=== PATIENT | male | born 1945 | race Caucasian/White ===

== ENCOUNTER 2019-05-20 20:01 | Inpatient (IN) | payer MEDICARE ==
--- NOTE | 2019-05-20 20:18 | ED ---
Altered Mental Status - HPI Summary HPI Summary: This pt is a 74 y/o male presenting to [facility] via EMS for altered mental status. EMS reports pt recently moved in with his daughter. Per EMS pt has been confusing his daughter for his and has been making sexual advances. Patient denies any recent falls. Patient denies any SI or HI. Patient denies any past suicide attempts. Pt unable to tell what day of the week and year it is. HPI IS LIMITED DUE TO LEVEL 5 CAVEAT - pt with AMS - History Of Current Complaint Chief Complaint: EDAltMentalStatus Stated Complaint: MHE PER EMS Time Seen by Provider: 05/20/19 20:09 Hx Obtained From: Patient, EMS Hx From Patient Unobtainable Due To: Altered Mental Status Onset/Duration: Still Present Timing: Lasting Days Severity Currently: Moderate Character: Confusion Aggravating Factor(s): Unknown Alleviating Factor(s): Unknown Associated Signs And Symptoms: Negative: Fever - Allergies/Home Medications Allergies/Adverse Reactions: Allergies Allergy/AdvReac Type Severity Reaction Status Date / Time lovastatin Allergy Unknown Verified 05/20/19 20:14 Reaction Details Home Medications: Home Medications Memantine TAB* [Namenda TAB*] 10 mg PO BID 05/20/19 [History Confirmed 05/20/19] PMH/Surg Hx/FS Hx/Imm Hx Endocrine/Hematology History: Reports: Hx Diabetes Denies: Hx Thyroid Disease Cardiovascular History: Reports: Hx Hypercholesterolemia, Hx Hypertension Neurological History: Reports: Hx Dementia - Surgical History Surgery Procedure, Year, and Place: Cardiac stents and double bypass Infectious Disease History: No Infectious Disease History: Denies: Traveled Outside the [place] in Last 30 Days - Family History Known Family History: Positive: Hypertension - Social History Alcohol Use: None Substance Use Type: Reports: None Smoking Status (MU): Former Smoker Review of Systems - ROS Summary Review of Systems Summary: ROS IS LIMITED DUE TO LEVEL 5 CAVEAT - AMS Negative: Fever Neurological: Other - POSITIVE: altered mental status Negative: Other - NEGATIVE: SI All Other Systems Reviewed And Are Negative: No Physical Exam - Summary Physical Exam Summary: Constitutional: Well-developed, Well-nourished, Alert. (-) Distressed Skin: Warm, Dry HENT: Normocephalic; Atraumatic Eyes: Conjunctiva normal Neck: Musculoskeletal ROM normal neck. (-) JVD, (-) Stridor, (-) Tracheal deviation Cardio: Rhythm regular, rate normal, Heart sounds normal; Intact distal pulses; The pedal pulses are 2+ and symmetric. Radial pulses are 2+ and symmetric. (-) Murmur Pulmonary/Chest wall: Effort normal. (-) Respiratory distress, (-) Wheezes, (-) Rales Abd: Soft, (-) Tenderness, (-) Distension, (-) Guarding, (-) Rebound Musculoskeletal: (-) Edema Lymph: (-) Cervical adenopathy Neuro: Alert, Oriented x2. Patient is disoriented to date and year. Psych: Mood and affect Normal Triage Information Reviewed: Yes Vital Signs On Initial Exam: Initial Vitals Temp Pulse Resp BP Pulse Ox 97.9 F 71 16 144/68 96 05/20/19 20:06 05/20/19 20:06 05/20/19 20:06 05/20/19 20:06 05/20/19 20:06 Vital Signs Reviewed: Yes Procedures - Sedation Patient Received Moderate/Deep Sedation with Procedure: No Diagnostics - Vital Signs Vital Signs Temp Pulse Resp BP Pulse Ox 05/20/19 20:06 97.9 F 71 16 144/68 96 - Laboratory Result Diagrams: 05/21/19 05:23 05/21/19 05:23 Lab Statement: Any lab studies that have been ordered have been reviewed, and results considered in the medical decision making process. - Radiology Chest XR Radiology Interpretation Completed By: ED Physician - CT Brain CT CT Interpretation Completed By: Radiologist Summary of CT Findings: IMPRESSION: 1. No acute intracranial abnormality. 2. Age -related atrophy and mild chronic small vessel ischemic disease. Dr. Roberson has reviewed this report. - EKG 20:23 Cardiac Rate: NL - at 68 bpm EKG Rhythm: Sinus Rhythm Summary of EKG Findings: EKG at 2022 shows sinus rhythm at a rate of 68 bpm. No STEMI. This EKG was interpreted and reviewed by ED physician. Altered Mental Statu Course/Dx - Course Assessment/Plan: Pt is a 74 y/o male presenting to [facility] via EMS for altered mental status. EMS reports pt recently moved in with. his daughter. Per EMS pt has been confusing his daughter for his and has been making sexual advances. Patient denies any recent falls. Patient denies any SI or HI. Lab results remarkable for sodium of 133, BUN of 33, creatinine of 1.46, glucose of 173. Brain CT shows 1. No acute intracranial abnormality. 2. Age-related atrophy and mild chronic small vessel ischemic disease. Patient was admitted to the hospitalist. - Diagnoses Provider Diagnoses: Dehydration, Acute kidney injury, Dementia Discharge ED - Sign-Out/Discharge Documenting (check all that apply): Patient Departure - Admit to [facility] - Discharge Plan Condition: Stable Disposition: ADMITTED TO [facility] - Billing Disposition and Condition Condition: STABLE Disposition: Admitted to [facility] - Attestation Statements Document Initiated by Scribe: Yes Documenting Scribe: Sada Hernández Provider For Whom Scribe is Documenting (Include Credential): Byron Roberson MD Scribe Attestation: Sada Bailey, scribed for Byron Roberson MD on 05/23/19 at 0824. Scribe Documentation Reviewed: Yes Provider Attestation: The documentation as recorded by the Sada gay accurately reflects the service I personally performed and the decisions made by , Byron Roberson MD Status of Scribe Document: Viewed
--- OUTSIDE RECORDS SUMMARY | 2019-05-20 20:23 | XMS REPORT | Continuity of Care Document ---
:1945 External Reference #:[id number] Author Name Preet Huggins M.D. Address [address] [place] [address] Care Team Providers Name Role Phone Yamile Hernández MD - Neurology Care Team Information Entry Level Paralegal [phone] Problems Active Problems Provider Date Alzheimer's disease Dominick Mack M.D. Onset: 07/09/2015 Essential hypertension Dominick Mack M.D. Onset: 05/28/2015 Type 2 diabetes mellitus Dominick Mack M.D. Onset: 05/28/2015 Hypercholesterolemia Dominick Mack M.D. Onset: 05/28/2015 Coronary arteriosclerosis Dominick Mack M.D. Onset: 05/28/2015 Dominguez's esophagus Dominick Mack M.D. Onset: 06/05/2015 Adenomatous polyp of colon Dominick Mack M.D. Onset: 06/05/2015 Gastroesophageal reflux disease Dominick Mack M.D. Onset: 06/05/2015 Diverticulosis of colon without Dominick Mack M.D. Onset: 06/05/2015 diverticulitis Type II diabetes mellitus uncontrolled Dominick Mack M.D. Onset: 2015 Disturbance in sleep behavior Dominick Mack M.D. Onset: 10/05/2015 Pure hypercholesterolemia, unspecified Dominick Mack M.D. Onset: 2015 Edema Adelina Rosales PA Onset: 02/13/2016 Cobalamin deficiency Preet Huggins M.D. Onset: 05/11/2019 Social History Type Date Description Comments Sex Unknown Tobacco Use Reviewed: 05/11/19 Denies Cigarette Use Smoking Status Reviewed: 05/11/19 Denies Cigarette Use ETOH Use Rarely consumes alcohol Recreational Drug Use Denies Drug Use Tobacco Use Start: Unknown Non Smoker Exercise Type/Frequency Does not exercise Sun Exposure Does not use sunscreen Seat Belt/Car Seat Seat Belt Use - Yes Allergies, Adverse Reactions, Alerts Active Allergies Reaction Severity Comments Date Mevacor "lost my mind" 05/28/2015 Medications Active Medications SIG Qnty Indications Ordering Date Provider Memantine HCL 1/2 tablet by 180tabs G30.9 [place], 05/11/2019 10mg mouth 2x/day for Tracy [place] Tablets 1wk then 1 tab in am and 1/2 tab in pm for 1 week then 1 tab 2x/day; for memory Vitamin B-12 take 1 sublingual D51.9 Bhavna, 05/11/2019 1000mcg tablet daily Tracy [place] Tablets Losartan Potassium take 1 tablet I10 Unknown 05/10/2019 daily in the 100mg Tablets morning for high blood pressure Januvia Take One Tablet By Unknown 04/23/2019 100mg Tablets Mouth Once Daily Ezetimibe Take One Tablet By Unknown 03/04/2019 10mg Tablets Mouth Every Day Nitroglycerin 1 q 5min prn chest 100tabs I25.10 Dominick Apple 06/05/2016 0.4mg pain max of 3 then Tracy Mack Tablets Sub call 911 if unrelieved Potassium Chloride 2 tablet by mouth 180tabs R60.0 Dominick Apple 02/13/2016 Yokasta ER daily, take with Tracy Mack 20Meq Tablets furosemide ER Furosemide Take One Tablet By 30tabs R60.0 David Núñez, 02/13/2016 40mg Tablets Mouth Once Daily D.O. Metoprolol Tartrate take 1 tablet by 180tabs I25.10 Dominick Apple 10/05/2015 mouth twice a day Tracy Mack 50mg Tablets I10 Amlodipine Besylate 1 tablet by mouth 90tabs I10 Dominick Mack, 05/17 10mg daily M.DKeny Tablets Crestor 1 by mouth in the 90tabs E78.00 Dominick Mack, 04/24/2015 40mg Tablets evening M.DKeny I25.10 Glipizide Take One Tablet By 180tabs E11.65 Dominick Mack, 04/02/2015 5mg Tablets Mouth Twice A Day M.D. Medications Administered in Office Medication SIG Qnty Indications Ordering Provider Date B12 Injection Nurse's Schedule 05/29/2016 Injection SC/Im Injections Nurse's Schedule 05/29/2016 Injection B12 Injection Dominick Mack M.D. 04/28/2016 Injection SC/Im Injections Dominick Mack M.D. 04/28/2016 Injection B12 Injection Dominick Mack M.D. 03/17/2016 Injection SC/Im Injections Dominick Mack M.D. 03/17/2016 Injection B12 Injection Dominick Mack M.D. 02/26/2016 Injection SC/Im Injections Dominick Mack M.D. 02/26/2016 Injection B12 Injection Nurse's Schedule 01/28/2016 Injection SC/Im Injections Nurse's Schedule 01/28/2016 Injection B12 Injection Nurse's Schedule 11/06/2015 Injection SC/Im Injections Nurse's Schedule 11/06/2015 Injection B12 Injection Dominick Mack M.D. 10/05/2015 Injection B12 Injection Nurse's Schedule 10/05/2015 Injection SC/Im Injections Dominick Mack M.D. 10/05/2015 Injection B12 Injection Nurse's Schedule 09/07/2015 Injection SC/Im Injections Nurse's Schedule 09/07/2015 Injection B12 Injection Nurse's Schedule 08/09/2015 Injection SC/Im Injections Nurse's Schedule 08/09/2015 Injection B12 Injection Dominick Mack M.D. 07/09/2015 Injection SC/Im Injections Dominick Mack M.D. 07/09/2015 Injection B12 Injection Nurse's Schedule 05/31/2015 Injection SC/Im Injections Nurse's Schedule 05/31/2015 Injection Immunizations CPT Code Status Date Vaccine Lot # [id number] Given 02/26/2016 Adacel or Boostrix, TDaP [id number] 03251 Given 01/24/2016 Influenza Vaccine Split Virus Preservative Free Im [id number] Use (hi-dose) 69237 Given 02/14/2015 Prevnar 13 18258 Given 02/06/2015 Flu, Split Virus 3Yrs 95501 Given 01/02/2014 Flu, Split Virus 3Yrs 85442 Given 05/28/2011 Pneumococcal Immunization 31327 Given 02/18/2005 Pneumococcal Immunization 14586 Given 04/13/2004 Td Immunization Vital Signs Date Vital Result Comment 05/11/2019 3:33pm BP Systolic 132 mmHg BP Diastolic 60 mmHg Height 67 inches 5'7" Weight 192.00 lb BMI (Body Mass Index) 30.1 kg/m2 06/09/2016 1:34pm BP Systolic 122 mmHg BP Diastolic 55 mmHg Heart Rate 80 /min Respiratory Rate 16 /min Weight 210.00 lb with shoes Results Test Acquired Facility Test Result H/L Range Note Date Laboratory 05/11/2019 In House Hemoglobin A1c 7.1 test finding Laboratory 05/06/2019 [facility] Troponin-I 0.04 Critical <0.03 1 test finding [phone] (TnI) ng/mL high Laboratory 05/06/2019 [facility] Troponin-I 0.04 Critical <0.03 2 test finding [phone] (TnI) ng/mL high CBC Auto Diff 05/06/2019 [facility] White Blood 7.1 Normal 3.5-10.8 [phone] Count 10^3/uL Red Blood Count 4.23 10^6/uL Normal 4.18-5.48 Hemoglobin 13.6 g/dL Low 14.0-18.0 Hematocrit 40 % Low 42-52 Mean Corpuscular Volume 94 fL Normal 80-94 Mean Corpuscular Hemoglobin 32 pg High 27-31 Mean Corpuscular HGB Conc 34 g/dL Normal 31-36 Red Cell Distribution Width 13 % Normal 10-15 Platelet Count 148 10^3/uL Low 150-450 Mean Platelet Volume 7.8 fL Normal 7.4-10.4 Abs Neutrophils 5.1 10^3/uL Normal 1.5-7.7 Abs Lymphocytes 1.0 10^3/uL Normal 1.0-4.8 Abs Monocytes 0.8 10^3/uL Normal 0-0.8 Abs Eosinophils 0.2 10^3/uL Normal 0-0.6 Abs Basophils 0.0 10^3/uL Normal 0-0.2 Abs Nucleated RBC 0.0 10^3/uL Granulocyte % 72.0 % Lymphocyte % 13.9 % Monocyte % 10.6 % Eosinophil % 2.9 % Basophil % 0.6 % Nucleated Red Blood Cells % 0.0 Comp Metabolic Panel 05/06/2019 [facility] Sodium 134 mmol/L Low 135- 145 [phone] Potassium 4.0 mmol/L Normal 3.5-5.0 Chloride 105 mmol/L Normal 101-111 Co2 Carbon Dioxide 23 mmol/L Normal 22-32 Anion Gap 6 mmol/L Normal 2-11 Glucose 199 mg/dL High 70-100 Blood Urea Nitrogen 21 mg/dL Normal 6-24 Creatinine 1.25 mg/dL High 0.67-1.17 BUN/Creatinine Ratio 16.8 Normal 8-20 Calcium 8.9 mg/dL Normal 8.6-10.3 Total Protein 6.3 g/dL Low 6.4-8.9 Albumin 3.8 g/dL Normal 3.2-5.2 Globulin 2.5 g/dL Normal 2-4 Albumin/Globulin Ratio 1.5 Normal 1-3 Total Bilirubin 0.50 mg/dL Normal 0.2-1.0 Alkaline Phosphatase 56 U/L Normal 34-104 Alt 14 U/L Normal 7-52 Ast 18 U/L Normal 13-39 Egfr Non- 56.6 >60 Egfr 68.5 >60 3 Laboratory test 05/06/2019 [facility] Magnesium 2.1 mg/dL Normal 1.9- 2.7 finding [phone] Troponin-I (TnI) 0.03 ng/mL Critical high <0.03 4 Urinalysis Profile 05/06/2019 [facility] Urine Color Straw [phone] Urine Appearance Clear Urine Specific [place] 1.010 Normal 1.010-1.030 Urine pH 6.0 Normal 5-9 Urine Urobilinogen Negative Negative Urine Ketones Negative Negative Urine Protein Negative Negative Urine Leukocytes Negative Negative Urine Blood 1+ Abnormal Negative Urine Nitrite Negative Negative Urine Bilirubin Negative Negative Urine Glucose 1+(50 mg/dL) Abnormal Negative Urine White Blood Cell Absent Absent Urine Red Blood Cell Absent Absent Urine Bacteria Absent Absent 1 Result TnIDx:0.04 Called to JARVIS at: 16:41:07 by:[id number] Read back by: JARVIS Troponin-I testing on Plasma Separator Tubes (PST) has a known false positive rate of 0.20-0.40%. All positive troponins reflex immediately to secondary confirmatory testing. Using the [employer] DxI 800 Access Immunoassay systems, the 99th percentile upper reference limit was demonstrated to be < 0.03 ng/mL. 2 Result TnIDx:0.04 Called to [id number] at: 14:27:21 by:[id number] Read back by: [id number] Troponin-I testing on Plasma Separator Tubes (PST) has a known false positive rate of 0.20-0.40%. All positive troponins reflex immediately to secondary confirmatory testing. Using the [employer] DxI 800 Access Immunoassay systems, the 99th percentile upper reference limit was demonstrated to be < 0.03 ng/mL. 3 Because ethnic data is not always readily available, this report includes an eGFR for both -Americans and non- Americans. The National Kidney Disease Education Program (NKDEP) does not endorse the use of the MDRD equation for patients that are not between the ages of 18 and 70, are , have extremes of body size, muscle mass, or nutritional status, or are non- or non-. According to the National Kidney Foundation, irrespective of diagnosis, the stage of the disease is based on the level of kidney function: Stage Description GFR(mL/min/1.73 m(2)) 1 Kidney damage with normal or decreased GFR 90 2 Kidney damage with mild decrease in GFR 60-89 3 Moderate decrease in GFR 30-59 4 Severe decrease in GFR 15-29 5 Kidney failure <15 (or dialysis) 4 Result TnIDx:0.03 Called to [id number] at: 13:11:19 by:[id number] Read back by: [id number] Troponin-I testing on Plasma Separator Tubes (PST) has a known false positive rate of 0.20-0.40%. All positive troponins reflex immediately to secondary confirmatory testing. Using the [employer] DxI 800 Access Immunoassay systems, the 99th percentile upper reference limit was demonstrated to be < 0.03 ng/mL. Procedures Date Code Description Status 05/11/2016 281122560 Diabetic Foot Exam Completed 08/11/2014 98316421 Colonoscopy Completed Medical Devices Description No Information Available Encounters Type Date Location Provider Dx Diagnosis Office Visit 05/11/2019 Main Office Preet Huggins Z68.30 Body mass index 2:45p M.D. (BMI) 30.0-30.9, adult E11.65 Type 2 diabetes mellitus with hyperglycemia G30.9 Alzheimer's disease, unspecified I10 Essential (primary) hypertension I25.10 Athscl heart disease [place] coronary artery w/o ang pctrs D51.9 Vitamin B12 deficiency anemia, unspecified Assessments Date Code Description Provider 05/11/2019 Z68.30 Body mass index (BMI) 30.0-30.9, adult Preet Huggins M.D. 05/11/2019 E11.65 Type 2 diabetes mellitus with hyperglycemia Preet Huggins M.D. 05/11/2019 G30.9 Alzheimer's disease, unspecified Preet Huggins M.D. 05/11/2019 I10 Essential (primary) hypertension Preet Huggins M.D. 05/11/2019 I25.10 Atherosclerotic heart disease [place] Preet Huggins M.D. coronary artery without angina pectoris 05/11/2019 D51.9 Vitamin B12 deficiency anemia, unspecified Preet Huggins M.D. Plan of Treatment Future Appointment(s):07/11/2019 8:55 am - Preet Huggins M.D. at Main Det[facility]3505/11/2019 - Preet Huggins M.D.Z68.30 Body mass index (BMI) 30.0-30.9, jvyfbN82.65 Type 2 diabetes mellitus with hyperglycemiaComments:A1c 7.1%. Given age and comorbidities I suspect this is adequate for him. Await old records.G30.9 Alzheimer's disease, unspecifiedNew Medication:Memantine HCL 10 mg - 1/2 tablet by mouth 2x/day for 1wk then 1 tab in am and 1/2 tab in pm for 1 week then 1 tab 2x/day; for memoryComments:Counseled re Dx, as well as the fact that this Dx was made initially back in [address] Hernández, and that his course since then further makes the Dx of Alzheimer's the likely cause here. He is now havingdifficulty with owning. We discussed importance of keeping him stimulated during the day, keeping his environment well lit during the day, and of keeping a predictable daily schedule. We discussed that non pharmacologic means were preferred as there is much baggage for many of the meds used to address such Sxs. We talked about possibility of trying quetiapine but warned them re risks/black box warning and in the end the family was not interested in such medication. We talked about keeping him safe, not allowing him access to car, turning off gas when other family not around. I advised against locking him in hte house when no one was around. Unfortunately Nay and Vincent work nights and he is therefore home alone and they have louisa unable to get an aid yet but have been trying, have spoke to [facility], and I also suggested they try reaching out to [facility] to see if they could help. They have plans to meet w/ someone at office of the aging to see what he may be eligible for in terms of social programs that would allow him to get a higher level of care.WRT Tx of the underlying disease, we discussed therapeutic options incl cholinesterase inhibitors such as Aricept (although Nay notes he has chronic diarrhea and has some accidents) and mthe option of memantine. We reviewed S/Es of both and expectations, how they won't really know if it is working or not. They decided to try memantine.Follow up:RTO 2-3 [address] records from Dr Zuñiga Resume your potassium [id number] Essential (primary) hypertensionNew Orders:Laura w/ micro, inhouse, Ordered: 05/11/19I25.10 Atherosclerotic heart disease of [place] coronary artery without angina vnemukvpT59.9 Vitamin B12 deficiency anemia, unspecifiedNew Medication:Vitamin B -12 1000 mcg - take 1 sublingual tablet dailyComments:start po B12 and we will check a level down the road, after he has been on the po supp for at least a couple of months. Functional Status Description No Information Available Mental Status Description No Information Available Referrals Description No Information Available
[2019-05-20 20:38] LABS: ABS Basophils 0.1 10^3/ul (0-0.2); ABS Eosinophils 0.3 10^3/ul (0-0.6); ABS Lymphocytes 1.4 10^3/ul (1.0-4.8); ABS Monocytes 1.3 10^3/ul (0-0.8); ABS Neutrophils 6.5 10^3/ul (1.5-7.7); Eosinophil % 2.7 %; Hematocrit 40 % (42-52); Hemoglobin 14.2 g/dL (14.0-18.0); Lymphocyte % 14.2 %; Mean Corpuscular HGB Conc 36 g/dL (31-36); Mean Corpuscular Hemoglobin 33 pg (27-31); Mean Corpuscular Volume 92 fL (80-94); Mean Platelet Volume 8.2 fL (7.4-10.4); Platelet Count 158 10^3/uL (150-450); Red Blood Count 4.35 10^6 /uL (4.18-5.48); Red Cell Distribution Width 13 % (10-15); White Blood Count 9.5 10^3/uL (3.5-10.8)
[2019-05-20 20:55] LABS: ALT 23 U/L (7-52); AST 22 U/L (13-39); Albumin 4.2 g/dL (3.2-5.2); Albumin/Globulin Ratio 1.6 (1-3); Alkaline Phosphatase 65 U/L (34-104); Anion Gap 7 mmol/L (2-11); BUN/Creatinine Ratio 22.6 (8-20); Blood Urea Nitrogen 33 mg/dL (6-24); CO2 Carbon Dioxide 24 mmol/L (22-32); Calcium 9.3 mg/dL (8.6-10.3); Chloride 102 mmol/L (101-111); EGFR African American 57.3 (>60); EGFR Non-African American 47.3 (>60); Globulin 2.7 g/dL (2-4); Glucose 173 mg/dL (70-100); Potassium 4.7 mmol/L (3.5-5.0); Sodium 133 mmol/L (135-145); Total Protein 6.9 g/dL (6.4-8.9)
[2019-05-20 20:56] LABS: Troponin I 0.01 ng/mL (<0.03)
[2019-05-20] MEDS ORDERED: NS 0.9% 1000 ML** 1,000 ML IV ONE (21:13)
[2019-05-20 21:15] LABS: Alcohol < 10 mg/dL (<10)
[2019-05-20] MEDS ORDERED: NS 0.9% 1000 ML** 1,000 ML IV SCH (23:30)
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
[2019-05-21 05:47] LABS: ABS Basophils 0.1 10^3/ul (0-0.2); ABS Eosinophils 0.3 10^3/ul (0-0.6); ABS Lymphocytes 1.7 10^3/ul (1.0-4.8); ABS Neutrophils 6.6 10^3/ul (1.5-7.7); Eosinophil % 2.8 %; Hematocrit 39 % (42-52); Lymphocyte % 17.5 %; Mean Corpuscular HGB Conc 36 g/dL (31-36); Mean Corpuscular Hemoglobin 33 pg (27-31); Mean Corpuscular Volume 92 fL (80-94); Mean Platelet Volume 8.1 fL (7.4-10.4); Nucleated Red Blood Cells % 0.1; Platelet Count 159 10^3/uL (150-450); Red Cell Distribution Width 13 % (10-15); White Blood Count 9.6 10^3/uL (3.5-10.8)
[2019-05-21] MEDS: Heparin VIAL(*) 5000 UNITS/ML VIAL (FIVE THOUSAND) SUBCUT SCH ×3 (05:55→21:23)
[2019-05-21 06:06] LABS: Calcium 9.1 mg/dL (8.6-10.3); EGFR African American 71.8 (>60); EGFR Non-African American 59.3 (>60); Potassium 4.1 mmol/L (3.5-5.0)
[2019-05-21 07:55] LABS: Urine Appearance Clear; Urine Bilirubin Negative (Negative); Urine Blood 1+ (Negative); Urine Color Straw; Urine Glucose 2+(150 mg/dL) (Negative); Urine Ketones Negative (Negative); Urine Nitrite Negative (Negative); Urine Protein Negative (Negative); Urine Specific Gravity 1.009 (1.010-1.030); Urine Urobilinogen Negative (Negative)
[2019-05-21 08:17] LABS: Urine Bacteria Absent (Absent); Urine Red Blood Cell Trace(0-2/hpf) (Absent); Urine White Blood Cell Trace(0-5/hpf) (Absent)
[2019-05-21] MEDS: Metoprolol Tartrate TAB* 50 mg PO SCH ×2 (08:48→21:24)
[2019-05-21] MEDS: Memantine TAB* 10 MG PO SCH ×2 (08:48→21:24)
[2019-05-21] MEDS: Ezetimibe TAB* 10 MG PO SCH (08:48)
[2019-05-21] MEDS: Atorvastatin* 80 MG TAB PO SCH (08:48)
[2019-05-21] MEDS: Losartan TAB* 25 MG PO SCH (08:48)
[2019-05-21] MEDS: Potassium Chlor TAB* 20 MEQ TAB.ER PO SCH ×2 (08:49→21:24)
[2019-05-21] MEDS: Insulin LISPRO* 1 UNITS UNIT SUBCUT SCH ×4 (08:51→21:23)
[2019-05-21] MEDS ORDERED: amLODIPine TAB* 5 MG PO SCH (09:00)
[2019-05-21 10:30] LABS: TSH (Thyroid Stimulating Horm) 2.44 mcIU/mL (0.34-5.60)
[2019-05-21 10:32] LABS: Free T4 0.96 ng/dL (0.61-1.12)
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
[2019-05-21] MEDS ORDERED: amLODIPine TAB* 5 MG PO ONE (12:14)
[2019-05-21 13:19] LABS: Vitamin D Total 25(OH) 36.3 ng/mL (20-50)
[2019-05-21] MEDS: glipiZIDE TAB* 5 MG PO SCH (17:39)
[2019-05-21] MEDS ORDERED: QUEtiapine TAB* 25 MG PO SCH (21:00)
[2019-05-22] MEDS ORDERED: QUEtiapine TAB* 25 MG PO ONE (00:48)
[2019-05-22] MEDS: Heparin VIAL(*) 5000 UNITS/ML VIAL (FIVE THOUSAND) SUBCUT SCH ×3 (05:37→22:28)
[2019-05-22] MEDS: Insulin LISPRO* 1 UNITS UNIT SUBCUT SCH ×4 (07:37→19:38)
[2019-05-22] MEDS: Potassium Chlor TAB* 20 MEQ TAB.ER PO SCH ×2 (07:47→19:37)
[2019-05-22] MEDS: glipiZIDE TAB* 5 MG PO SCH ×2 (07:47→16:56)
[2019-05-22] MEDS: Memantine TAB* 10 MG PO SCH ×2 (07:47→19:37)
[2019-05-22] MEDS: Losartan TAB* 25 MG PO SCH (07:47)
[2019-05-22] MEDS: Metoprolol Tartrate TAB* 50 mg PO SCH ×2 (07:47→19:37)
[2019-05-22] MEDS: amLODIPine TAB* 5 MG PO SCH (07:47)
[2019-05-22] MEDS: Atorvastatin* 80 MG TAB PO SCH (07:48)
[2019-05-22] MEDS: Ezetimibe TAB* 10 MG PO SCH (07:48)
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
[2019-05-22] MEDS ORDERED: Calcium Carbonate CHEW TAB* 500 MG (TUMS) PO PRN (14:46)
[2019-05-22] MEDS: QUEtiapine TAB* 100 MG PO SCH (19:24)
[2019-05-22] MEDS: Melatonin 3 MG TAB PO SCH (19:37)
[2019-05-23] MEDS: Heparin VIAL(*) 5000 UNITS/ML VIAL (FIVE THOUSAND) SUBCUT SCH ×3 (06:18→20:12)
[2019-05-23] MEDS: Insulin LISPRO* 1 UNITS UNIT SUBCUT SCH ×4 (08:44→20:11)
[2019-05-23] MEDS: Metoprolol Tartrate TAB* 50 mg PO SCH ×2 (08:53→20:11)
[2019-05-23] MEDS: Losartan TAB* 25 MG PO SCH (08:53)
[2019-05-23] MEDS: amLODIPine TAB* 5 MG PO SCH (08:53)
[2019-05-23] MEDS: Memantine TAB* 10 MG PO SCH ×2 (08:55→20:11)
[2019-05-23] MEDS: Atorvastatin* 80 MG TAB PO SCH (08:56)
[2019-05-23] MEDS: glipiZIDE TAB* 5 MG PO SCH ×2 (08:56→17:31)
[2019-05-23] MEDS: Ezetimibe TAB* 10 MG PO SCH (08:56)
[2019-05-23] MEDS: Potassium Chlor TAB* 20 MEQ TAB.ER PO SCH ×2 (08:56→20:11)
[2019-05-23 09:55] LABS: BUN/Creatinine Ratio 20.6 (8-20); EGFR African American 86.6 (>60); EGFR Non-African American 71.6 (>60); Potassium 4.3 mmol/L (3.5-5.0)
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
[2019-05-23] MEDS: Melatonin 3 MG TAB PO SCH (20:11)
[2019-05-23] MEDS: QUEtiapine TAB* 100 MG PO SCH (20:11)
[2019-05-24] MEDS: Heparin VIAL(*) 5000 UNITS/ML VIAL (FIVE THOUSAND) SUBCUT SCH ×3 (05:32→21:18)
[2019-05-24] MEDS: Losartan TAB* 25 MG PO SCH (07:43)
[2019-05-24] MEDS: amLODIPine TAB* 5 MG PO SCH (07:43)
[2019-05-24] MEDS: glipiZIDE TAB* 5 MG PO SCH ×2 (07:43→17:01)
[2019-05-24] MEDS: Metoprolol Tartrate TAB* 50 mg PO SCH ×2 (07:43→21:19)
[2019-05-24] MEDS: Ezetimibe TAB* 10 MG PO SCH (07:43)
[2019-05-24] MEDS: Atorvastatin* 80 MG TAB PO SCH (07:43)
[2019-05-24] MEDS: Memantine TAB* 10 MG PO SCH ×2 (07:43→21:18)
[2019-05-24] MEDS: Potassium Chlor TAB* 20 MEQ TAB.ER PO SCH ×2 (07:43→21:19)
[2019-05-24] MEDS: Insulin LISPRO* 1 UNITS UNIT SUBCUT SCH ×4 (08:48→21:16)
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
[2019-05-24] MEDS: QUEtiapine TAB* 100 MG PO SCH (21:19)
[2019-05-24] MEDS: Melatonin 3 MG TAB PO SCH (21:19)
--- NOTE | 2019-05-24 23:10 | DS ---
CC: Dr. Huggins * DISCHARGE SUMMARY: DATE OF ADMISSION: 05/20/19 DATE OF ANTICIPATED DISCHARGE: 05/25/19 (This discharge was dictated in advance ). ATTENDING PHYSICIAN WHILE IN THE HOSPITAL: Dr. Mary Lema * (dictated by ELVIS Humphries) PRIMARY CARE PROVIDER: Dr. Huggins. PRIMARY DIAGNOSIS: Dementia with wandering behavior. SECONDARY DIAGNOSES: 1. Dementia. 2. Diabetes mellitus type 2. 3. Hypertension. 4. Hyperlipidemia. 5. Questionable history of stroke. 6. Coronary artery disease status post coronary artery bypass graft. PERTINENT STUDIES WHILE IN THE HOSPITAL: Chest x-ray: Postsurgical changes, no evidence for acute finding. Brain CT: No acute intracranial abnormality. Age- related atrophy and mild chronic small vessel ischemic disease. HISTORY OF PRESENT ILLNESS/HOSPITAL COURSE: David Vera is a 74-year-old white male with the past medical history significant for coronary artery disease status post CABG, diabetes mellitus type 2, hypertension, hyperlipidemia , and dementia; who presents to the emergency department upon his daughter's direction due to difficulty caring for him at home. The patient has had increasing frequency of wandering behavior at home and therefore he moved into his daughter's house. The wandering behavior did frequently occur as well and she was having difficulty caring for him due to her work schedule. Additionally , there were concerns that he was becoming more confused, aggressive, and agitated which brought him to the hospital. He had syphilis IgG antibody which was negative. Urinalysis revealed no signs of infection. His TSH was normal, B12 was normal, vitamin D was normal and there was no concerns for other source of infection. He had a while he was in the hospital and his normal home medications were continued other than his home Lasix because there were concerns for some possible dehydration and there was some mild acute kidney injury which has since resolved. Otherwise, he was not appearing agitated and there was no aggressive behavior during his hospitalization, though he did frequently have sleep disturbances and Seroquel was started which did help him sleep through the night. PHYSICAL EXAMINATION: Please see progress note from 05/24/19. DISCHARGE PLAN: DIET: Heart-healthy diet. ACTIVITY: The patient may return to normal activities as tolerated. The patient will be receiving long-term care at [facility] in [place], [place]. The patient's daughter has consented for this. The patient will be establishing care with a new primary care provider there. He would benefit from a repeat BMP in 1 week as I am restarting his Lasix. He should return to the emergency department for any chest pain, difficulty breathing, fever, chills, or other concerning symptoms. DISCHARGE MEDICATIONS: 1. Memantine 10 mg p.o. b.i.d. 2. Metoprolol tartrate 50 mg p.o. b.i.d. 3. Lasix 40 mg p.o. daily. 4. Ezetimibe 10 mg p.o. daily. 5. Amlodipine 5 mg p.o. daily. 6. Losartan 100 mg p.o. daily. 7. Sitagliptin 100 mg p.o. daily. 8. Rosuvastatin 40 mg p.o. daily. 9. Potassium chloride 20 mEq p.o. b.i.d. 10. Glipizide 5 mg p.o. daily. 11. Seroquel 100 mg p.o. at bedtime. 12. Melatonin 6 mg p.o. at bedtime. 13. Calcium carbonate 500 mg p.o. q.4 hours p.r.n. indigestion. CONDITION ON DISCHARGE: Stable. DISPOSITION: [facility]. TIME SPENT: Approximately 35 minutes was spent on his discharge, approximately half this time was spent at the bedside evaluating the patient and discussing the plan of care. ELVIS HUMPHRIES [id number]/[facility] #: [id number] [facility]ENTERJossie
[2019-05-25] MEDS: Heparin VIAL(*) 5000 UNITS/ML VIAL (FIVE THOUSAND) SUBCUT SCH (06:04)
[2019-05-25 07:51] VITALS: BP 125/52
[2019-05-25] MEDS: Insulin LISPRO* 1 UNITS UNIT SUBCUT SCH (08:47)
[2019-05-25] MEDS: Ezetimibe TAB* 10 MG PO SCH (08:48)
[2019-05-25] MEDS: glipiZIDE TAB* 5 MG PO SCH (08:48)
[2019-05-25] MEDS: Metoprolol Tartrate TAB* 50 mg PO SCH (08:48)
[2019-05-25] MEDS: Potassium Chlor TAB* 20 MEQ TAB.ER PO SCH (08:48)
[2019-05-25] MEDS: Atorvastatin* 80 MG TAB PO SCH (08:48)
[2019-05-25] MEDS: Losartan TAB* 25 MG PO SCH (08:49)
[2019-05-25] MEDS: Memantine TAB* 10 MG PO SCH (08:49)
[2019-05-25] MEDS: amLODIPine TAB* 5 MG PO SCH (08:49)
== END 2019-05-25 09:30 | DRG 57 ==
LOC: ED 20:01 → MED 23:20
PROVIDERS: ADMIT Internal Medicine; ATTEND Internal Medicine
DX: G30.9 Alzheimer's disease, unspecified (principal); F05 Delirium due to known physiological condition; N17.9 Acute kidney failure, unspecified; F02.80 Dementia in other diseases classified elsewhere, unspecified severity, without behavioral disturbance, psychotic disturbance, mood disturbance, and anxiety; I25.10 Atherosclerotic heart disease of native coronary artery without angina pectoris; K21.9 Gastro-esophageal reflux disease without esophagitis; E78.00 Pure hypercholesterolemia, unspecified; I10 Essential (primary) hypertension; E86.0 Dehydration; E78.5 Hyperlipidemia, unspecified; E11.51 Type 2 diabetes mellitus with diabetic peripheral angiopathy without gangrene; Z88.8 Allergy status to other drugs, medicaments and biological substances; Z95.5 Presence of coronary angioplasty implant and graft; Z95.1 Presence of aortocoronary bypass graft; Z87.891 Personal history of nicotine dependence; Z91.83 Wandering in diseases classified elsewhere; Z86.73 Personal history of transient ischemic attack (TIA), and cerebral infarction without residual deficits; Z79.84 Long term (current) use of oral hypoglycemic drugs; Z79.899 Other long term (current) drug therapy
CPT/HCPCS: 36415; 70450; 71045; 80048; 80053; 80320; 81003; 81015; 82140; 82306; 82607; 83036; 83605; 83880; 84439; 84443; 84484; 85025; 86780; 87086; 93005; 99284; A9270-GY; G0480; J1644